=== PATIENT | female | born 1995 | race Caucasian/White ===

== ENCOUNTER 2021-06-27 09:10 | Emergency (ER) | payer OTHER ==
[~2021-06-27] VITALS: Ht 162.6 cm; Wt 86.2 kg
[2021-06-27 09:53] LABS: URINE BILIRUBIN NEGATIVE (Negative); URINE BLOOD NEGATIVE (Negative); URINE CLARITY CLOUDY; URINE COLOR ORANGE; URINE GLUCOSE-RANDOM TRACE (Negative); URINE KETONES NEGATIVE (Negative); URINE LEUKOCYTES TRACE (Negative); URINE NITRITE POSITIVE (Negative); URINE PROTEIN TRACE (Negative)
[2021-06-27 10:04] LABS: SQUAMOUS 4-10 Moderate /LPF (0-3)
[2021-06-27 10:05] LABS: BACTERIA >30 Many /HPF (None Seen); CASTS None Seen /LPF (None Seen); CRYSTALS None Seen /LPF (None Seen); URINE RBC None Seen /HPF (0-2); URINE WBC 6-15 Few /HPF (0-5)
[2021-06-27] MEDS ORDERED: MACROBID 100 M100 M1 PO (10:16)
[2021-06-27 10:21] VITALS: BP 127/84
== END 2021-06-27 10:30 | disposition home or self-care (01) ==
LOC: M.ERS 09:10
PROVIDERS: Family Medicine
DX: J06.9 Acute upper respiratory infection, unspecified (principal); Z20.822 Contact with and (suspected) exposure to COVID-19; N39.0 Urinary tract infection, site not specified; Z88.5 Allergy status to narcotic agent; Z88.0 Allergy status to penicillin